=== PATIENT | female | born 1990 | race Caucasian/White ===

== ENCOUNTER 2018-06-26 08:02 | Emergency (ER) | payer BC ==
[~2018-06-26] VITALS: Ht 165.1 cm; Wt 65.8 kg
--- NOTE | 2018-06-26 08:27 | NUR ---
Dr Ramos at the bedside for MSE.
[2018-06-26] MEDS ORDERED: diphenhydrAMINE 50 MG/1 ML VIAL ONE (08:43)
[2018-06-26] MEDS ORDERED: METOCLOPRAMIDE HCL 10 MG/2 ML VIAL ONE (08:44)
[2018-06-26] MEDS ORDERED: METOCLOPRAMIDE HCL 10 MG/2 ML VIAL IV ONE (08:45)
[2018-06-26] MEDS ORDERED: diphenhydrAMINE 50 MG/1 ML VIAL IV ONE (08:45)
[2018-06-26] MEDS ORDERED: IV NORMAL SALINE 1000 ML BAG IV ONE (08:45)
[2018-06-26 08:49] LABS: BASOPHILS % (AUTO) 0.3 % (0.0-2.0); EOSINOPHILS # (AUTO) 0.1 K/uL (0.0-0.7); EOSINOPHILS % (AUTO) 0.5 % (0.0-7.0); HEMATOCRIT 39.5 % (31.2-41.9); HEMOGLOBIN 13.4 g/dL (10.9-14.3); LYMPHOCYTES # (AUTO) 1.5 K/uL (20.0-40.0); MEAN CORPUSCULAR HGB CONC 34 g/dL (32.3-35.6); MEAN CORPUSCULAR VOLUME 85.3 fL (75.5-95.3); MONOCYTES # (AUTO) 0.8 K/uL (2.0-10.0); MONOCYTES % (AUTO) 6.1 % (0.0-11.0); NEUTROPHILS # (AUTO) 10.2 K/uL (1.8-8.9); NEUTROPHILS % (AUTO) 81.1 % (38.5-71.5); PLATELET COUNT (AUTO) 274 K/uL (179-408); RED BLOOD CELL COUNT(AUTO) 4.63 MIL/uL (3.63-4.92); WHITE BLOOD COUNT (AUTO) 12.6 K/uL (3.8-11.8)
[2018-06-26 08:51] LABS: CARBON DIOXIDE 21 mmol/L (21-32); CHLORIDE 105 mmol/L (98-107); GLUCOSE 102 mg/dL (74-106); UREA NITROGEN, BLOOD 7 mg/dL (7-18)
[2018-06-26 08:56] LABS: ALANINE AMINOTRANSFERASE 17 U/L (14-59); ALKALINE PHOSPHATASE 82 U/L (50-136); ASPARTATE AMINOTRANSFERASE 10 U/L (15-37); BILIRUBIN,DIRECT 0.1 mg/dL (0.0-0.2); BILIRUBIN,TOTAL 0.5 mg/dL (0.2-1.0); LIPASE 102 U/L (73-393); TOTAL PROTEIN, SERUM 8.1 g/dL (6.4-8.2)
--- NOTE | 2018-06-26 09:18 | NUR ---
Pt states feeling better and no longer nauseous.
--- NOTE | 2018-06-26 09:40 | NUR ---
Patient discharged to home in stable conditon. Written and verbal after care instructions given. Patient verbalizes understanding of instructions.
[2018-06-26 09:41] VITALS: BP 121/60
== END 2018-06-26 09:43 | disposition home or self-care (01) ==
LOC: ER 08:02
DX: R19.7 Diarrhea, unspecified (principal); R11.2 Nausea with vomiting, unspecified; J02.9 Acute pharyngitis, unspecified; R20.2 Paresthesia of skin
CPT/HCPCS: 36415; 80048; 80076; 83690; 84702; 85025; 96361; 96374; 96375; 99283; J1200; J2765; A4663; J7030